=== PATIENT | female | born 1995 | race Caucasian/White ===

== ENCOUNTER → 2016-07-02 | Outpatient (CLI) | payer OTHER ==
[2016-07-02 11:24] LABS: TOTAL PROTEIN,URINE 20.4 mg/dl (0-11.9)
== END ==
LOC: LAB 10:20
PROVIDERS: ATTEND Specialist
DX: Z34.80 Encounter for supervision of other normal pregnancy, unspecified trimester (principal); R03.0 Elevated blood-pressure reading, without diagnosis of hypertension
CPT/HCPCS: 81050; 84157

== ENCOUNTER 2016-07-07 14:55 | Emergency (ER) | payer OTHER ==
--- NOTE | 2016-07-07 15:07 | DR.GENAD ---
HPI - Nurses notes reviewed Nurses Notes Review: Yes - Discharge Plan Condition: Stable - Follow ups/Referrals Follow ups/Referrals: NFD,None [Primary Care Provider] - 3 days - Instructions
[2016-07-07 15:23] VITALS: BP 138/89; BMI 25.7
== END 2016-07-07 16:36 | disposition home or self-care (01) ==
LOC: ER 15:29
DX: O60.03 Preterm labor without delivery, third trimester (principal)
CPT/HCPCS: 99283; 99284

== ENCOUNTER → 2016-07-17 | Outpatient (CLI) | payer OTHER ==
[2016-07-07 15:23] VITALS: BP 138/89
[2016-07-17 12:08] LABS: BASOPHILS # (AUTO) 0.1 X10^3/uL (0.0-0.1); BASOPHILS % (AUTO) 0.5 % (0.2-1.0); BILIRUBIN,URINE 1+ (NEGATIVE); BLOOD/HEMOGLOBIN,URINE 1+ (NEGATIVE); EOSINOPHILS # (AUTO) 0.1 x10^3/uL (0.0-0.2); EOSINOPHILS % (AUTO) 1.2 % (0.9-2.9); GLUCOSE, URINE NEGATIVE (NEGATIVE); HEMATOCRIT 31.5 % (36.0-47.0); HEMOGLOBIN 10.7 g/dL (12.0-16.0); KETONES,URINE 1+ (NEGATIVE); LEUKOCYTE ESTERASE ,URINE 1+ (NEGATIVE); LYMPHOCYTES % (AUTO) 19.6 % (21.0-51.0); MEAN CORPUSCULAR HEMOGLOBIN 28.5 pg (27.0-34.0); MEAN CORPUSCULAR HGB CONC 33.9 g/dL (33.0-35.0); MEAN CORPUSCULAR VOLUME 84.2 fL (80.0-100.0); MEAN PLATELET VOLUME 8.5 fL (7.4-11.0); MONOCYTES # (AUTO) 0.7 x10^3/uL (0.3-0.8); NEUTROPHILS # (AUTO) 7.4 x10^3/uL (2.2-4.8); NEUTROPHILS % (AUTO) 71.7 % (42.0-75.0); NITRITES,URINE NEGATIVE (NEGATIVE); PLATELET COUNT 297 X10^3/uL (150.0-450.0); PROTEIN,URINE 2+ (NEGATIVE); RED BLOOD COUNT 3.74 X10^6/uL (3.5-5.4); RED CELL DISTRIBUTION WIDTH 15.9 % (11.6-16.5); UROBILINOGEN,URINE 1+ (NORMAL); WHITE BLOOD COUNT 10.4 X10^3/uL (3.6-10.0)
[2016-07-17 12:15] LABS: BLOOD UREA NITROGEN 13 mg/dL (7-18); CALCIUM 8.6 mg/dL (8.5-10.1); CARBON DIOXIDE 21.1 mmol/L (21-32); CHLORIDE 105 mmol/L (98-107); CREATININE 0.89 mg/dL (0.55-1.02); GLUCOSE 78 mg/dL (65-99); SODIUM 136 mmol/L (136-145); eGFR BLACK RACES > 60 (>60); eGFR NON BLACK RACES > 60 (>60)
[2016-07-17 12:38] LABS: APPEARANCE,URINE HAZY (CLEAR); BACTERIA,URINE 1+ /HPF (NEGATIVE); COLOR,URINE YELLOW (YELLOW); HYALINE CASTS, URINE FEW /LPF (NEGATIVE); RBC,URINE 0-2 /HPF (NEGATIVE); SQUAMOUS EPITHELIAL CELL,UR RARE /HPF (NEGATIVE)
[2016-07-17 12:39] LABS: MUCUS,URINE FEW /HPF (NEGATIVE)
== END | disposition home or self-care (01) ==
LOC: LAB 11:29
PROVIDERS: ATTEND Specialist
DX: Z01.812 Encounter for preprocedural laboratory examination (principal); Z34.83 Encounter for supervision of other normal pregnancy, third trimester
CPT/HCPCS: 36415; 80048; 81001; 85025; 86592; 86850; 86900; 86901

== ENCOUNTER 2016-07-20 06:13 | Inpatient (IN) | payer OTHER ==
[~2016-07-20 06:13] MED LIST: D5LR 1000ML W PITOCIN 10 U/L 1,000 ML IV ONE
[2016-07-20] MEDS ORDERED: PITOCIN ONE (06:14)
[2016-07-20] MEDS ORDERED: D5 1/2 NS 1000 ML 1,000 ML IV ONE (06:14)
[2016-07-20] MEDS ORDERED: D5 1/2 NS 1000ML W PITOCIN 20 U/L 1,000 ML IV ONE (06:14)
[2016-07-20] MEDS ORDERED: PITOCIN IVP ONE (06:26)
[2016-07-20] MEDS ORDERED: NUBAIN INJ 200 MG VIAL MULTIDOSE IVP PRN (06:26)
[2016-07-20] MEDS ORDERED: PITOCIN 10 UNITS in D5 LR 1000 ML 1,000 ML IV PRN (06:26)
[2016-07-20] MEDS ORDERED: REGLAN INJ 10 MG VIAL IVP PRN ×2 (06:26→12:15)
[2016-07-20] MEDS ORDERED: MORPHINE SULFATE INJ 2 MG IVP PRN (06:26)
[2016-07-20] MEDS ORDERED: PHENERGAN INJ 25 MG IV PRN ×3 (06:26→12:15)
[2016-07-20] MEDS: D5 1/2 NS 1000 ML 1,000 ML IV SCH ×2 (06:30→08:28)
[2016-07-20] MEDS ORDERED: NS 1000 ML 1,000 ML ONE (06:55)
[2016-07-20] MEDS ORDERED: LR 1000 ML IV 1,000 ML IV ONE ×2 (06:58→07:53)
--- NOTE | 2016-07-20 07:00 | DR.OB ---
OB Quick Note - Assessment/Plan Assessment/Plan: L&D 07/20/16 at 6:50am S-No complaint. O-Afebrile,VSS UWR=594 with good LTV, +accel, no decel. CTX=none CVX=2-3cm/50%/0/VTX AROM with moderate meconium. FSE and IUPC placed. A-IUP at 38 1/7 weeks for induction PIH Rh- GERD anemia P-Begin pitocin induction Amnioinfusion Anticipate
[2016-07-20 07:20] LABS: URIC ACID 5.2 mg/dL (2.6-6.0)
[2016-07-20] MEDS ORDERED: FENTANYL INJ 100 mcg EPI ONE (07:52)
[2016-07-20] MEDS ORDERED: NAROPIN EPIDURAL 0.2% 60 ML with FENTANYL INJ 100 mcg 90 MCG IVP SCH ×2 (08:00)
[2016-07-20] MEDS ORDERED: NAROPIN EPIDURAL 0.2% + FENTANYL 90MCG 60 ML EPI ONE (08:00)
[2016-07-20] MEDS ORDERED: NUBAIN INJ 10 ONE (08:33)
[2016-07-20] MEDS ORDERED: MOTRIN TAB 800 MG PO PRN (11:16)
[2016-07-20] MEDS ORDERED: D5 1/2 NS 1000 ML 1,000 ML with PITOCIN 20 UNITS IV SCH ×2 (12:00)
[2016-07-20] MEDS ORDERED: DERMOPLAST SPRAY TOP PRN (12:15)
[2016-07-20] MEDS ORDERED: HYPERRHO S/D (or RHOGAM) IM PRN (12:15)
[2016-07-20] MEDS ORDERED: ADACEL TDaP IM ONE ×2 (12:15→16:40)
[2016-07-20] MEDS ORDERED: MILK OF MAGNESIA PO PRN (12:15)
[2016-07-20] MEDS ORDERED: AMBIEN PO PRN (12:15)
[2016-07-20] MEDS: D5 1/2 NS 1000 ML 1,000 ML with PITOCIN 20 UNITS IV SCH ×2 (12:52)
[2016-07-20] MEDS: MOTRIN TAB 800 MG PO PRN (12:53)
[2016-07-20] MEDS ORDERED: XANAX PO PRN (13:08)
[2016-07-20] MEDS: PERCOCET TAB 5/325 MG PO PRN (15:03)
[2016-07-20] MEDS: NICODERM PATCH 21 MG/24 HR TD SCH (16:42)
[2016-07-20] MEDS: ZANTAC PO SCH (20:36)
--- NOTE | 2016-07-21 01:20 | DR.OB ---
OB Quick Note - Assessment/Plan Assessment/Plan: Delivery Note [employer] 07/20/16 at 11:06am Patient complete and pushing. Head delivered over intact perineum. Nose and mouth bulb suctioned. No nuchal cord. Body delivered over intact perineum. Cord clamped x 2 and cut. Infant handed to attendant. Cord sent for gases. Placenta delivered spontaneously / intact / 3 vessel cord. No CVX / vaginal / perineal tears noted. Viable male delivered VTX/OA, wt=6'2" and 9/ 9, stable to NBN. Mother stable to RR. HXJ=[id number].
[2016-07-21] MEDS: D5 1/2 NS 1000 ML 1,000 ML with PITOCIN 20 UNITS IV SCH ×2 (04:46)
[2016-07-21 05:29] LABS: HEMATOCRIT 29.8 % (36.0-47.0)
[2016-07-21] MEDS: PERCOCET TAB 5/325 MG PO PRN ×2 (07:35→12:03)
[2016-07-21] MEDS ORDERED: DEPO-PROVERA CONTRACEPTIVE INJ IM ONE (08:02)
[2016-07-21] MEDS ORDERED: PRENATAL PLUS PO SCH (09:00)
[2016-07-21] MEDS: NICODERM PATCH 21 MG/24 HR TD SCH (09:04)
[2016-07-21] MEDS: ZANTAC PO SCH (09:05)
[2016-07-21] MEDS: MOTRIN TAB 800 MG PO PRN (10:53)
[2016-07-21 12:05] VITALS: BP 121/78
== END 2016-07-21 14:15 | disposition home or self-care (01) | DRG 775 ==
LOC: LD 06:13 → MED/SURG 12:40
PROVIDERS: ADMIT Specialist; ATTEND Specialist
PROC: 10E0XZZ Delivery of Products of Conception, External Approach (ICD-10-PCS; principal; 2016-07-20)
PROC: 10907ZC Drainage of Amniotic Fluid, Therapeutic from Products of Conception, Via Natural or Artificial Opening (ICD-10-PCS; 2016-07-20)
PROC: 3E033VJ Introduction of Other Hormone into Peripheral Vein, Percutaneous Approach (ICD-10-PCS; 2016-07-20)
PROC: 3E0234Z Introduction of Serum, Toxoid and Vaccine into Muscle, Percutaneous Approach (ICD-10-PCS; 2016-07-20)
PROC: 3E0234Z Introduction of Serum, Toxoid and Vaccine into Muscle, Percutaneous Approach (ICD-10-PCS; 2016-07-20)
PROC: 00HU33Z Insertion of Infusion Device into Spinal Canal, Percutaneous Approach (ICD-10-PCS; 2016-07-20)
DX: O13.3 Gestational [pregnancy-induced] hypertension without significant proteinuria, third trimester (principal); O36.0930 Maternal care for other rhesus isoimmunization, third trimester, not applicable or unspecified; Z37.0 Single live birth; Z3A.38 38 weeks gestation of pregnancy; O99.02 Anemia complicating childbirth; D50.8 Other iron deficiency anemias; O71.82 Other specified trauma to perineum and vulva; O77.0 Labor and delivery complicated by meconium in amniotic fluid; O9A.22 Injury, poisoning and certain other consequences of external causes complicating childbirth
CPT/HCPCS: 09167; 36415; 59409; 80307; 83615; 84450; 84460; 84550; 85014; 85018; 85384; 85610; 85730; 86850; 86900; 86901; A4222; S0197; G0434; J1050; J2300; J2590; J2790; J3010; J7042; J7120